=== PATIENT | female | born 1995 | race Caucasian/White ===

== ENCOUNTER 2019-05-02 17:51 | Emergency (ER) | payer BC ==
[2019-05-02 18:02] VITALS: BP 136/90
--- NOTE | 2019-05-02 18:04 | UC ---
Skin Complaint HPI - HPI Summary HPI Summary: H large breast and chronic abscess---is planning to see Dr. Noyola---today had one break on left side of breast about 4;00 location patient reports large amount of bloody and purulent drainage--breast is tender to touch --- patient is not constitutionally ill with this - History of Current Complaint Chief Complaint: UCSkin Time Seen by Provider: 05/02/19 17:57 Stated Complaint: RASH Hx Obtained From: Patient ?: No Onset/Duration: Gradual Onset, Worse Since - today Onset Severity: Moderate Current Severity: Moderate Location: Discrete Character: Pain, Redness Aggravating Factor(s): Touch Alleviating Factor(s): Nothing Associated Signs & Symptoms: Positive: Drainage, Tenderness. Negative: Bruising , Red Streaks - Allergy/Home Medications Allergies/Adverse Reactions: Allergies Allergy/AdvReac Type Severity Reaction Status Date / Time diphenhydramine Allergy See Comment Verified 05/02/19 18:03 [From Benadryl] tape Allergy Hives Uncoded 05/02/19 18:03 PMH/Surg Hx/FS Hx/Imm Hx Previously Healthy: No - Family History Known Family History: Positive: None - Social History Occupation: Employed Full-time Lives: With Family Alcohol Use: Rare Substance Use Type: None Smoking Status (MU): Never Smoked Tobacco Review of Systems All Other Systems Reviewed And Are Negative: Yes Constitutional: Positive: Negative Skin: Positive: Other - open and draining abscess left lateral breast Eyes: Positive: Negative ENT: Positive: Negative Respiratory: Positive: Negative Cardiovascular: Positive: Negative Gastrointestinal: Positive: Negative Genitourinary: Positive: Negative Motor: Positive: Negative Neurovascular: Positive: Negative Musculoskeletal: Positive: Negative Neurological: Positive: Negative Psychological: Positive: Negative Is Patient Immunocompromised?: No Physical Exam Triage Information Reviewed: Yes Appearance: Well-Appearing, Well-Nourished, Pain Distress Vital Signs Reviewed: Yes Eye Exam: Normal Eyes: Positive: Conjunctiva Clear ENT Exam: Normal ENT: Positive: Normal ENT inspection, Hearing grossly normal. Negative: Trismus , Muffled voice, Hoarse voice Dental Exam: Normal Neck exam: Normal Neck: Positive: Supple, Nontender, No Lymphadenopathy Respiratory Exam: Normal Respiratory: Positive: Chest non-tender, Lungs clear, Normal breath sounds, No respiratory distress, No accessory muscle use Cardiovascular Exam: Normal Cardiovascular: Positive: RRR, No Murmur, Pulses Normal, Brisk Capillary Refill Musculoskeletal Exam: Normal Musculoskeletal: Positive: Strength Intact, ROM Intact, No Edema Neurological Exam: Normal Neurological: Positive: Alert, Muscle Tone Normal Psychological Exam: Normal Skin: Positive: Other - 1x2 cm draining open abscess Course/Dx - Course Course Of Treatment: wound culture, bactrim, pain control, to ED should pain or symptoms worsen in anyway---follow with surgeon on Saturday - Diagnoses Provider Diagnosis: Abscess of left breast Discharge - Sign-Out/Discharge Documenting (check all that apply): Patient Departure All imaging exams completed and their final reports reviewed: No Studies - Discharge Plan Condition: Stable Disposition: HOME Prescriptions: Sulfamethox/Trimethoprim DS* [Bactrim DS 800/160 TAB*] 1 tab PO BID #17 tab Patient Education Materials: Abscess (ED), Warm Compress or Soak (ED) Referrals: Pinky Orellana MD [Medical Doctor] - 05/04/19 Additional Instructions: To ED if symptoms worsen in any way--worsening pain, redness spreading fevers, chills, body aches - Billing Disposition and Condition Condition: STABLE Disposition: Home
[2019-05-02] MEDS ORDERED: Sulfamethox/Trimethoprim DS 800/160* TAB PO ONE ×2 (18:24→18:25)
[2019-05-02] MEDS ORDERED: HYDROcodone/ACETAMIN 5-325 MG* 1 TAB PO ONE (18:26)
--- NOTE | 2019-05-04 16:18 | UC ---
- Progress Note Progress Note: pt on bactrim 3+ Staph A pending sensitivity no change [facility] [place] 05/04/19 Course/Dx - Diagnoses Provider Diagnoses: Abscess of left breast Discharge - Sign-Out/Discharge Documenting (check all that apply): Post-Discharge Follow Up All imaging exams completed and their final reports reviewed: No Studies - Discharge Plan Condition: Stable Disposition: HOME Patient Education Materials: Abscess (ED), Warm Compress or Soak (ED) Referrals: Pinky Orellana MD [Medical Doctor] - 05/04/19 Additional Instructions: To ED if symptoms worsen in any way--worsening pain, redness spreading fevers, chills, body aches - Billing Disposition and Condition Condition: STABLE Disposition: Home
--- NOTE | 2019-05-05 17:23 | UC ---
- Progress Note Progress Note: 05/05/2019 Wound culture: positive for S.Aureus. Pt Rx Bactrim final reports shows sensitivity to Bactrim No change Amairani ARIZMENDI Course/Dx - Diagnoses Provider Diagnoses: Abscess of left breast Discharge - Sign-Out/Discharge Documenting (check all that apply): Post-Discharge Follow Up All imaging exams completed and their final reports reviewed: No Studies - Discharge Plan Condition: Stable Disposition: HOME Patient Education Materials: Abscess (ED), Warm Compress or Soak (ED) Referrals: Pinky Orellana MD [Medical Doctor] - 05/04/19 Additional Instructions: To ED if symptoms worsen in any way--worsening pain, redness spreading fevers, chills, body aches - Billing Disposition and Condition Condition: STABLE Disposition: Home - Attestation Statements Provider Attestation: I was available for consult. This patient was seen by the MARTHA. The patient was not presented to, seen by, or examined by me. -Taco
== END 2019-05-02 18:56 | disposition home or self-care (01) ==
LOC: UCEAST 17:51
DX: N61.1 Abscess of the breast and nipple (principal)
CPT/HCPCS: 87070; 87077; 87186; 87205; 87640; 87641; 99213; A9270-GY; G0463

== ENCOUNTER 2019-05-04 08:08 | Emergency (ER) | payer BC ==
[2019-05-04] MEDS ORDERED: Ondansetron INJ* 2 MG/ML VIAL IV ONE (08:27)
[2019-05-04] MEDS ORDERED: Morphine 4 MG/ML VIAL (1 ml) 4 MG/ML VIAL IV ONE (08:27)
[2019-05-04] MEDS ORDERED: HYDROcodone/ACETAMIN 5-325 MG* 1 TAB PO ONE (08:46)
[2019-05-04] MEDS ORDERED: Clindamycin 600 MG/D5W BAG(*) 600 MG/50 ML BAG IV ONE (08:56)
--- NOTE | 2019-05-04 09:06 | ED ---
Skin Complaint - HPI Summary HPI Summary: Patient is a 23-year-old female with a history of hidradenitis suppurativa presenting to the ED with left breast abscess. She states she has not had an abscess and approximately 3 years and usually they will drain spontaneously. She states this has been draining spontaneously, however is with a large ulceration now and continues to provide purulent drainage. She sees with erythema and warmth have decreased (patient shows pictures), she continues to endorse pain, this pain is worse then it has been over the past several days. She states this is the worst abscess she has had since the onset diagnosis of her hidradenitis. Denies any fevers, sweats, chills. Patient states she has been feeling otherwise well. She was also given a 2 day prescription for hydrocodone and use this last evening with good effect. She has been trying to get into see Dr. Chavez, plastic surgery. - History of Current Complaint Chief Complaint: EDRashSkinAbscess Time Seen by Provider: 05/04/19 08:16 Stated Complaint: ABCESS Hx Obtained From: Patient Hx Last Menstrual Period: iud Onset/Duration: Started Days Ago Skin Exposure Onset/Duration: Days Ago Timing: Constant Onset Severity: Moderate Current Severity: Moderate Pain Intensity: 8 Pain Scale Used: 0-10 Numeric Skin Location: Other: - left breast abscess Aggravating Symptom(s): Nothing Alleviating Symptom(s): Nothing Associated Signs & Symptoms: Negative - Allergy/Home Medications Allergies/Adverse Reactions: Allergies Allergy/AdvReac Type Severity Reaction Status Date / Time diphenhydramine Allergy See Comment Verified 05/04/19 08:14 [From Benadryl] tape Allergy Hives Uncoded 05/04/19 08:14 Home Medications: Home Medications Sulfamethox/Trimethoprim DS* [Bactrim DS 800/160 TAB*] 1 tab PO BID 05/04/19 [ History Confirmed 05/04/19] PMH/Surg Hx/FS Hx/Imm Hx Previously Healthy: Yes - Surgical History Surgery Procedure, Year, and Place: septoplasty, turbinate reduction - Immunization History Hx Pertussis Vaccination: No Immunizations Up to Date: Yes Infectious Disease History: No Infectious Disease History: Denies: Traveled Outside the [place] in Last 30 Days - Family History Known Family History: Positive: None - Social History Occupation: Employed Full-time Lives: With Family Alcohol Use: Rare Hx Substance Use: No Substance Use Type: Reports: None Hx Tobacco Use: No Smoking Status (MU): Never Smoked Tobacco Review of Systems Constitutional: Negative Negative: Fever, Chills, Fatigue, Skin Diaphoresis Negative: Palpitations, Chest Pain Negative: Shortness Of Breath, Cough Genitourinary: Negative Positive: see HPI, frequency Negative: Arthralgia, Myalgia Positive: Other - 3cm diameter ulceration Neurological: Negative All Other Systems Reviewed And Are Negative: Yes Physical Exam Triage Information Reviewed: Yes Vital Signs On Initial Exam: Initial Vitals Temp Pulse Resp BP Pulse Ox 97.9 F 94 18 127/83 98 05/04/19 08:11 05/04/19 08:11 05/04/19 08:11 05/04/19 08:11 05/04/19 08:11 Vital Signs Reviewed: Yes Appearance: Positive: Well-Appearing, Well-Nourished Skin: Positive: Skin Color Reflects Adequate Perfusion, Tender, Weeping Skin/ Lesions - ulceration to the L breast - 3cm in diameter Head/Face: Positive: Normal Head/Face Inspection Eyes: Positive: EOMI, BECKI, Conjunctiva Clear Neck: Positive: Supple, No Lymphadenopathy Respiratory/Lung Sounds: Positive: Clear to Auscultation, Breath Sounds Present Cardiovascular: Positive: RRR, Pulses are Symmetrical in both Upper and Lower Extremities Musculoskeletal: Positive: Normal, Strength/ROM Intact Neurological: Positive: Speech Normal Psychiatric: Positive: Affect/Mood Appropriate - patient is tearful d/t pain AVPU Assessment: Alert Diagnostics - Vital Signs Vital Signs Temp Pulse Resp BP Pulse Ox 05/04/19 08:53 16 05/04/19 08:11 97.9 F 94 18 127/83 98 - Laboratory Lab Statement: Any lab studies that have been ordered have been reviewed, and results considered in the medical decision making process. Course/Dx - Course Course Of Treatment: During this course of treatment, the patient is evaluated for a left sided breast abscess. On physical examination, there is an ulceration which is approximately 4 cm in diameter with small amount of purulent drainage around the edges and shows tissue with evidence of mucous membraine and disintegration of tissue. loss of epidermal layer and shows a small area of subcutaneous fat. No evidence of lack of blood flow surrounding. Applied xeroform and tegaderm. Givne 600mg clindamycin and morphine in the ED. patient is given a note for work 1 week. She will continue to take Bactrim twice daily. She will f/u with wound clinic. - Differential Diagnoses - Skin Complaint Differential Diagnoses: Other - hidradenitis suppurativa, ulceration - Diagnoses Provider Diagnoses: Abscess, Ulceration Discharge - Sign-Out/Discharge Documenting (check all that apply): Patient Departure Patient Received Moderate/Deep Sedation with Procedure: No - Discharge Plan Condition: Stable Disposition: HOME Prescriptions: Hydrocodone/Acetamin 10/325(NF [[place] 10/325 (NF)] 1 tab PO Q6H #16 tab MDD 4 Patient Education Materials: Acute Wound Care (ED) Forms: *Work Release Referrals: Slim Huffman MD [Medical Doctor] - No Primary Care Phys,NOPCP [Primary Care Provider] - Ras Eid MD [Medical Doctor] - Additional Instructions: Please follow up with wound care Please try to continue to follow up with Dr. Chavez I have also given you a referral for surgery for worsening hidrenitis symptoms Replace gauze bandages once daily until wound has healed over Continue to place antibiotic ointment to the area if you no longer are using the xeroform gauze - Billing Disposition and Condition Condition: STABLE Disposition: Home
--- OUTSIDE RECORDS SUMMARY | 2019-05-04 09:13 | XMS REPORT | Continuity of Care Document ---
:1995 External Reference #:[id number] Author Name Mable Trinhitlyn Care Team Providers Name Role Phone Out Of State Primary Care Physician Unavailable Payers Date Identification Numbers Payment Provider Subscriber Effective: 2005 Policy Number: [id number] [facility] Group Number: [id number] [address] [id number] PayID: [id number] [place] [address] Problems Active Problems Provider Date Obstructive sleep apnea syndrome Shawanda Sequeira DNP, RN, STENOGRAPHER SECRETARY-BC Onset: 06/2019 Hypersomnia Shawanda Sequeira DNP, RN, STENOGRAPHER SECRETARY-BC Onset: 12/26/2018 Body mass index 40+ - severely Shawanda Sequeira DNP, RN, STENOGRAPHER SECRETARY-BC Onset: 2018 obese Family History Date Family Member(s) Observation Comments General Sleep Apnea General Diabetes Type II General Hypertension Father Diabetes Father Hypertension Mother Alive And Well Siblings 2 Paternal Grandfather Alzheimer's Disease Paternal Grandmother Lung Cancer Maternal Grandfather Alive And Well Maternal Grandmother Diabetes Maternal Grandmother Breast Cancer Social History Type Date Description Comments Sex Unknown Education Higest level completed, Bachelor's Degree Marital Status Significant Other Lives With Boyfriend 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 Tobacco Use Start: Unknown Never Smoked Cigarettes Smoking Status Reviewed: 04/27/19 Never Smoked Cigarettes ETOH Use Occasionally consumes alcohol Tobacco Use Start: Unknown Patient has never smoked Recreational Drug Use Sporadically uses Marijuana Exercise Type/Frequency Exercises regularly Exercise Type/Frequency Lifts weights 4 times a week Currently Active Patient is currently sexually active Contraceptive Methods Current methods include placed 07/2018 copper T IUD [place] Allergies, Adverse Reactions, Alerts Description No Known Drug Allergies Medications Active Medications SIG Qnty Indications Ordering Provider Date One-A-Day Womens Unknown Zinc 1 tab by mouth Unknown 100mg every day D3 1 tab by mouth Unknown every day Nasacort Allergy use 1 spray in Unknown 24HR affected 55mcg/Act nostril(s) once Aerosol daily at bedtime Azelastine HCL 2 squirts in each 30units Unknown (Nasal) nostril 2x daily 0.1% Solution Vitamin B Complex 1 tab by mouth Unknown every day B-12 1 tab by mouth Unknown every day History Medications Antihistimine once a day in each Chela White MD 10/27/2018 - nostril 11/12/2018 [place]-3 1 by mouth every Unknown - 1200mg Capsules day 12/25/2018 Vital Signs Date Vital Result Comment 04/27/2019 8:24am Height 72 inches 6'0" Weight 313.00 lb Heart Rate 80 /min BP Systolic Sitting 132 mmHg BP Diastolic Sitting 86 mmHg Respiratory Rate 18 /min O2 % BldC Oximetry 98 % BMI (Body Mass Index) 42.4 kg/m2 12/26/2018 8:05am Height 72 inches 6'0" Weight 311.00 lb Heart Rate 86 /min BP Systolic Sitting 140 mmHg Rue large cuff BP Diastolic Sitting 80 mmHg Rue large cuff Respiratory Rate 12 /min O2 % BldC Oximetry 98 % BMI (Body Mass Index) 42.2 kg/m2 12/18/2018 3:23pm Height 72 inches 6'0" Weight 310.00 lb Heart Rate 86 /min BP Systolic 147 mmHg BP Diastolic 73 mmHg O2 % BldC Oximetry 97 % BMI (Body Mass Index) 42.0 kg/m2 11/12/2018 8:12am Height 72 inches 6'0" Weight 310.00 lb Heart Rate 72 /min Respiratory Rate 12 /min O2 % BldC Oximetry 98 % BMI (Body Mass Index) 42.0 kg/m2 11/10/2018 8:32am Height 72 inches 6'0" Weight 314.12 lb with clothes and shoes Heart Rate 73 /min BP Systolic Sitting 148 mmHg BP Diastolic Sitting 72 mmHg Body Temperature 98.3 F O2 % BldC Oximetry 98 % BMI (Body Mass Index) 42.6 kg/m2 10/27/2018 7:30am Height 72 inches 6'0" Weight 309.00 lb Heart Rate 80 /min BP Systolic Sitting 118 mmHg Rue large cuff BP Diastolic Sitting 76 mmHg Rue large cuff Respiratory Rate 12 /min O2 % BldC Oximetry 98 % BMI (Body Mass Index) 41.9 kg/m2 Neck Circumference in inches 15.5 Results Test Date Facility Test Result H/L Range Note CBC Auto Diff 12/05/2018 [facility] White Blood 3.5 10^3/uL N 3.5-10.[address] [place] [address] [phone] Red Blood Count 4.60 10^6/uL N 4.00-5.40 Hemoglobin 13.2 g/dL N 12.0-16.0 Hematocrit 40 % N 35-47 Mean Corpuscular Volume 87 fL N 80-97 Mean Corpuscular Hemoglobin 29 pg N 27-31 Mean Corpuscular HGB Conc 33 g/dL N 31-36 Red Cell Distribution Width 13 % N 10.5-15 Platelet Count 312 10^3/uL N 150-450 Mean Platelet Volume 7.1 fL Low 7.4-10.4 Abs Neutrophils 1.4 10^3/uL Low 1.5-7.7 Abs Lymphocytes 1.5 10^3/uL N 1.0-4.8 Abs Monocytes 0.4 10^3/uL N 0-0.8 Abs Eosinophils 0.1 10^3/uL N 0-0.6 Abs Basophils 0 10^3/uL N 0-0.2 Abs Nucleated RBC 0 10^3/uL Granulocyte % 39.9 % Lymphocyte % 44.4 % Monocyte % 12.1 % Eosinophil % 3.0 % Basophil % 0.6 % Nucleated Red Blood Cells % 0 Laboratory test 12/05/2018 [facility] TSH (Thyroid 2.06 mcIU/mL N 0.34-5.[address] Stim Horm) [place] [address] [phone] Prolactin 9.2 ng/mL N 1.0-25.0 HCG < 0.60 mIU/mL 1 1 <5.0 Negative 5.0 - 25.0 Indeterminate (Repeat testing recommended after 72 hours) >25.0 Positive Perimenopausal women can display HCG levels of up to 20 mIU/mL Procedures Date Code Description Status 12/12/2018 48342 Polysomnography Sleep Staging 4+ Parameters Completed 10/29/2018 91737 Sleep Study Unattended,HRT Rate,Oxygen Sat,Resp Completed Effort/Airflow Encounters Type Date Location Provider Dx Diagnosis Office Visit 12/26/2018 [facility] Shawanda Sequeira, G47.33 Obstructive sleep 8:30a [facility] RONNIE-KIRK apnea (adult) [facility] (pediatric) G47.14 Hypersomnia due to medical condition E66.01 Morbid (severe) obesity due to excess calories Z68.41 Body mass index (BMI) 40.0-44.9, adult Office Visit 12/18/2018 3:30p [facility] Gal Duke, N92.6 [facility] menstruation, unspecified [facility] menstruation, at [place] unspecified Z97.5 Presence of (intrauterine) contraceptive device Office Visit 10/27/2018 7:30a [facility] Chela White, R06.83 [facility] R53.83 Other fatigue E66.09 Other obesity due to excess calories Z68.41 Body mass index (BMI) 40.0-44.9, adult Plan of Treatment Future Appointment(s):07/28/2019 8:30 am - Shawanda Sequeira DNP, RN, RONNIE-BC at [facility]04/27/2019 - Shawanda Sequeira DNP RN, RONNIE- BCG47.33 Obstructive sleep apnea (adult) (pediatric)Comments:12/12/18 AHI 13.1/ hour, worse supine 40/hour, 85% nadirOn CPAP auto 5-15 cm AHI 1.9/hourFollow up:3 monthsRecommendations:Continue PAP device, Benefitting and compliant with treatment. Cleaning Wipe off mask daily (baby wipe-no scent, or warm water) Clean mask, tubing, filter, and water chamber weekly in mild no scent dish soap and water. Hang to dry. If you have any sleepiness while driving you MUST avoid operating a vehicle or machinery. If you have difficulty with your equipment, or need to replace your mask or hoses, please contact your homecare agency. A weight change of 20 pounds or more may have an effect onyour equipment ; if you are experiencing problems please call for an appointment. If you have any further questions, please call the [facility] at .L27.14 Hypersomnia due to medical [id number] Morbid (severe) obesity due to excess caloriesRecommendations:Continue with weight loss [id number] Body mass index (BMI) 40.0-44.9, adultRecommendations:See assessment #3
--- NOTE | 2019-05-04 09:38 | ED ---
Progress - Progress Note Progress Note: VIKAS Hicks, asked me to see this patient. Abscess seems to have resolved. Patient has a superficial ulceration on the left side of the breast approximately at 3 o'clock position. No induration or fluctuance. I gave recommendation of Xeroform gauze application and wound care follow up. Course/Dx - Diagnoses Provider Diagnoses: Abscess, Ulceration Discharge - Sign-Out/Discharge Documenting (check all that apply): Patient Departure - Discharge home Patient Received Moderate/Deep Sedation with Procedure: No - Discharge Plan Condition: Stable Disposition: HOME Prescriptions: Hydrocodone/Acetamin 10/325(NF [[place] 10/325 (NF)] 1 tab PO Q6H #16 tab MDD 4 Patient Education Materials: Acute Wound Care (ED) Forms: *Work Release Referrals: Slim Huffman MD [Medical Doctor] - No Primary Care Phys,NOPCP [Primary Care Provider] - Ras Eid MD [Medical Doctor] - Additional Instructions: Please follow up with wound care Please try to continue to follow up with Dr. Chavez I have also given you a referral for surgery for worsening hidrenitis symptoms Replace gauze bandages once daily until wound has healed over Continue to place antibiotic ointment to the area if you no longer are using the xeroform gauze - Attestation Statements Document Initiated by Scribe: Yes Documenting Scribe: Jennie Moraes Provider For Whom Scribe is Documenting (Include Credential): Calderon Rubio MD Scribe Attestation: I, Jennie Moraes, scribed for Calderon Rubio MD on 05/04/19 at 1343. Status of Scribe Document: Ready
--- NOTE | 2019-05-04 09:43 | UC ---
- Progress Note Progress Note: Reviewed prelim gm stain / cx results. + S. aureus + (MRSA neg). Cx pending. I note that she just has been re-seen in the ED, with Bactrim rx'd, and f/u given. Course/Dx - Diagnoses Provider Diagnoses: Abscess Discharge - Sign-Out/Discharge Documenting (check all that apply): Post-Discharge Follow Up Patient Received Moderate/Deep Sedation with Procedure: No - Discharge Plan Condition: Stable Disposition: HOME Prescriptions: Hydrocodone/Acetamin 10/325(NF [[place] 10/325 (NF)] 1 tab PO Q6H #16 tab MDD 4 Patient Education Materials: Acute Wound Care (ED) Forms: *Work Release Referrals: Slim Huffman MD [Medical Doctor] - No Primary Care Phys,NOPCP [Primary Care Provider] - Ras Eid MD [Medical Doctor] - Additional Instructions: Please follow up with wound care Please try to continue to follow up with Dr. Chavez I have also given you a referral for surgery for worsening hidrenitis symptoms Replace gauze bandages once daily until wound has healed over Continue to place antibiotic ointment to the area if you no longer are using the xeroform gauze - Billing Disposition and Condition Condition: STABLE Disposition: Home
[2019-05-04] MEDS ORDERED: Clindamycin 600 MG IVPREMIX(* 600 MG/50 ML SDV IV ONE (10:00)
[2019-05-04 10:05] VITALS: BP 112/79
== END 2019-05-04 10:04 | disposition home or self-care (01) ==
LOC: ED 08:08
DX: N61.1 Abscess of the breast and nipple (principal); L98.499 Non-pressure chronic ulcer of skin of other sites with unspecified severity
CPT/HCPCS: 96374; 96375; 99282; J2270; J2405

== ENCOUNTER 2020-02-03 10:14 | Emergency (ER) | payer BC ==
--- NOTE | 2020-02-03 10:36 | UC ---
FLU HPI - HPI Summary HPI Summary: 24 yo female presents with URI symptoms. She tells me that last night she developed fatigue, nausea, sore throat, runny nose, and dry cough. Symptoms have persisted into this morning. She has not taken anything OTC for her symptoms. She has not had any recent travel or positive COVID contacts. Denies any PMHx. She does not smoke. Denies fever, SOB, chest pain, abdominal pain, vomiting. She did get a flu shot this year - History of Current Complaint Stated Complaint: SORE THROAT COUGH FEVER CHILLS Time Seen by Provider: 02/03/20 10:35 Hx Obtained From: Patient Hx Last Menstrual Period: iud Onset/Duration: Sudden Onset Severity Currently: Moderate Severity Initially: Moderate Pain Intensity: 5 Pain Scale Used: 0-10 Numeric - Allergy/Home Medications Allergies/Adverse Reactions: Allergies Allergy/AdvReac Type Severity Reaction Status Date / Time diphenhydramine Allergy See Comment Verified 02/03/20 10:52 [From Benadryl] tape Allergy Hives Uncoded 02/03/20 10:52 Home Medications: Home Medications Albuterol HFA INHALER* [Ventolin HFA Inhaler*] 1 puff INH Q6H PRN #1 mdi [Rx] PMH/Surg Hx/FS Hx/Imm Hx - Additional Past Medical History Additional PMH: None - Surgical History Surgical History: Yes Surgery Procedure, Year, and Place: septoplasty, turbinate reduction - Family History Known Family History: Positive: None - Social History Lives: With Family Alcohol Use: Rare Substance Use Type: None Smoking Status (MU): Never Smoked Tobacco Review of Systems All Other Systems Reviewed And Are Negative: No Constitutional: Positive: Chills, Fatigue, Other - Body aches Skin: Positive: Negative Eyes: Positive: Negative ENT: Positive: Sore Throat, Nasal Discharge Respiratory: Positive: Cough Cardiovascular: Positive: Negative Gastrointestinal: Positive: Nausea Genitourinary: Positive: Negative Neurological/Mental Status: Positive: Negative Psychological: Positive: Negative Physical Exam - Summary Physical Exam Summary: GENERAL: NAD. WDWN. No pain distress. SKIN: No rashes, sores, lesions, or open wounds. HEENT: Head: AT/NC Eyes: Conjunctiva clear without inflammation or discharge. Ears: Hearing grossly normal. TMs intact, no bulging, erythema, or edema. Nose: Nasal mucosa pink and moist. NTTP maxillary and frontal sinus. Throat: Posterior oropharynx without exudates, erythema, or tonsillar enlargement. Uvula midline. NECK: Supple. Nontender. No lymphadenopathy. CHEST: Mild wheezing throughout. No r/r. No accessory muscle use. Breathing comfortably and in no distress. CV: RRR. Pulses intact. Cap refill <2seconds NEURO: Alert. PSYCH: Age appropriate behavior. Triage Information Reviewed: Yes Vital Signs: Vital Signs: Temp Pulse Resp BP Pulse Ox 98 F 94 18 154/84 98 02/03/20 10:53 02/03/20 10:53 02/03/20 10:53 02/03/20 10:53 02/03/20 10:53 Laboratory Tests 02/03/20 10:51 Influenza A (Rapid) Negative Influenza B (Rapid) Negative Vital Signs Reviewed: Yes Diagnostics - Radiology CXR Radiology Interpretation Completed By: Radiologist Summary of Radiographic Findings: IMPRESSION: NO ACTIVE CARDIOPULMONARY DISEASE. Flu Course/Dx - Course Course Of Treatment: CXR negative. POC flu negative. She does not meet criteria for COVID testing (cough only with other dx being more likely) and has no comorbidities. Suspect bronchitis - rx for albuterol inhaler. She was given a duoneb treatment in the clinic with great relief and improved lung sounds. [place] better and had less coughing. - Differential Dx/Diagnosis Provider Diagnosis: Bronchitis Discharge ED - Sign-Out/Discharge Documenting (check all that apply): Patient Departure All imaging exams completed and their final reports reviewed: No Studies - Discharge Plan Condition: Stable Disposition: HOME Prescriptions: Albuterol HFA INHALER* [Ventolin HFA Inhaler*] 1 puff INH Q6H PRN #1 mdi PRN Reason: Cough Patient Education Materials: Acute Bronchitis (ED) Referrals: No Primary Care Phys,NOPCP [Primary Care Provider] - Additional Instructions: Your symptoms are likely from a viral infection. Viral infections do not respond to antibiotics and are limited to the treatment of symptoms. Viral infections typically run their course in 7-10 days. Drink plenty of fluids, especially if you are running any fever. Use salt water gargles several times a day. Take over the counter acetaminophen (Tylenol) or ibuprofen (Advil, Motrin) according to directions as needed for pain or fever. You may also use Chloraseptic spray or Cepacol lonzenges according to directions which contain a numbing medication and can provide some temporary relief from a sore throat. Return here or follow up with your primary care provider in 7 days if symptoms persist. - Billing Disposition and Condition Condition: STABLE Disposition: Home - Attestation Statements Provider Attestation: This patient was not seen by me I was available for consult Chart reviewed WILLIAMS
--- OUTSIDE RECORDS SUMMARY | 2020-02-03 10:43 | XMS REPORT | Continuity of Care Document ---
:1995 External Reference #:[id number] Author Name VIKAS Shi Address [address] [place] [address] Care Team Providers Name Role Phone Saqib Simmons MD - Family Care Team Information [employer] Medicine Problems Description No Information Available Social History Type Date Description Comments Sex Unknown Tobacco Use Start: Unknown Patient has never smoked Smoking Status Reviewed: 08/10/19 Patient has never smoked Allergies, Adverse Reactions, Alerts Active Allergies Reaction Severity Comments Date Benadryl Hives, super hyper 08/10/2019 Medications Active Medications SIG Qnty Indications Ordering Provider Date Diflucan take 1 pill 12tabs B35.4 Geovnai Bone, 01/12/2020 150mg Tablets every 3 days M.D. until you see me next week Multivitamin Adult 1 by mouth Unknown every day Tablets Vitamin D-3 2 by mouth Unknown 1000Unit every day Capsules Zinc Unknown 30mg Capsules Super B Complex Maxi Unknown Tablets Vitamin B12 1 by mouth Unknown 3000mcg every day Tablets Sub Immunizations CPT Code Status Date Vaccine Lot # [id number] Given 08/10/2019 Influenza Vac, Quadrivalent, Slit Virus, Im [id number] Vital Signs Date Vital Result Comment 01/12/2020 4:45pm BP Systolic 150 mmHg BP Diastolic 90 mmHg Heart Rate 64 /min Body Temperature 98.1 F Respiratory Rate 20 /min Height 72 inches 6'0" Weight 318.25 lb shoes on BMI (Body Mass Index) 43.2 kg/m2 08/10/2019 8:42am BP Systolic 110 mmHg BP Diastolic 72 mmHg Heart Rate 90 /min Body Temperature 98.1 F Height 72 inches 6'0" Weight 239.00 lb BMI (Body Mass Index) 32.4 kg/m2 Results Test Acquired Date Facility Test Result H/L Range Note Comprehensive 08/10/2019 Eduardo Gaytan([facility]) Sodium 138 mEq/L 134-149 Metabolic Prof Potassium 4.1 mEq/L 3.6-5.5 Chloride 102 mEq/L 94-112 Carbon Dioxide 26 mEq/L 21-32 Glucose 109 mg/dL High 70-105 BUN 12 mg/dL 6-26 Creatinine 0.7 mg/dL 0.6-1.4 BUN/Creat Ratio 17.1 CALC 8.0-36.0 Calcium 9.6 mg/dL 8.6-10.2 Total Protein 6.9 g/dL 6.4-8.3 Albumin 4.6 g/dL 3.8-5.5 Globulin 2.3 g/dL 2.0-4.8 A/G Ratio 2.0 CALC 0.6-2.3 Alk. Phosphatase 53 U/L 30-110 Alt (SGPT) 26 U/L 7-35 Ast (Sgot) 21 U/L 5-34 Total Bilirubin 0.6 mg/dL 0.2-1.3 GFR Non- >60 ml/min/1.73m^ >=60 GFR >60 ml/min/1.73m^ >=60 Lipid Profile 08/10/2019 Eduardo Gaytan([facility]) Cholesterol 191 mg/dL 120- 200 Triglycerides 152 mg/dL 30-200 HDL Cholesterol 37 mg/dL 30-85 LDL (Calculated) 124 CALC 0-129 VLDL Cholesterol 30 mg/dL 0-50 HDL Risk Factor 5.2 CALC High 0.0-4.4 Laboratory test 08/10/2019 Eduardo Gaytan([facility]) TSH 1.97 mIU/L 0.50-6.00 finding CBC Electronic Fma 08/10/2019 Eduardo Gaytan([facility]) WBC 3.3 x10^3/UL Low 4.0-10.0 1 RBC 4.37 x10^6/UL 3.93-6.00 HGB 12.6 g/dL 12.0-17.0 HCT 38 % 35-50 MCV 87.6 fL 80.0-95.0 MCH 28.8 pg 25.6-32.2 MCHC 32.9 g/dL 32.2-36.0 RDW-CV 13.0 % 11.6-14.4 PLT 239 x10^3/UL 163-400 MPV 8.9 fL Low 9.4-12.4 Jose M# 1.36 x10^3/UL Low 1.56-6.13 Lymph# 1.38 x10^3/UL 1.18-3.74 [place]# 0.42 x10^3/UL 0.24-0.82 Eos # 0.2 x10^3/UL 0.0-0.5 Baso # 0.03 x10^3/UL 0.01-0.08 Jose M% 40.7 % 34.0-70.0 Lymph % 41.3 % 20.0-52.0 [place]% 12.6 % High 5.0-12.0 Eos% 4.5 % 0.7-7.0 Baso% 0.9 % 0.1-1.2 1 RESULTS VERIFIED BY REPEAT ANALYSIS Procedures Description No Information Available Medical Devices Description No Information Available Encounters Type Date Location Provider Dx Diagnosis Office Visit 08/10/2019 [facility] Saqib Molina Z00.00 Encntr for general 9:00a MD [place] adult medical exam w/o abnormal findings Z23 Encounter for immunization E66.9 Obesity, unspecified Assessments Date Code Description Provider 01/12/2020 B35.4 Tinea corporis VIKAS Shi 08/10/2019 Z00.00 Encounter for general adult medical Saqib Simmons MD examination without abnormal findings 08/10/2019 Z23 Encounter for immunization Saqib Simmons MD 08/10/2019 E66.9 Obesity, unspecified Saqib Simmons MD Plan of Treatment Future Appointment(s):01/19/2020 4:00 pm - VIKAS Shi at [facility] [id number]/12/2020 - Fozia Valerio, PAB35.4 Tinea corporisNew Medication: Diflucan 150 mg - take 1 pill every 3 days until you see me next weekComments: Could be fungal or pityriasis rosea (which is viral) Start Diflucan 1 tablet every 3 days for the next week See me next week to check inAllComments: PCMHMedication Management Patient Understands medications he's taking? Yes Are there Barriers to Adherence? No Has the patient been asked about herbal supplements and therapies, and OTC meds? Yes Care Plan1. Patient has been queried about patient's goals/preferences and functional/ lifestyle goals at relevant visits. Yes If relevant, describe: N/A2. Treatment goals as explained to the patient: above3. Are there barriers to meeting treatment goals? No If Yes, please describe:4. Self-Management goals as described to the patient: Yes As always, we strongly encourage a healthy diet and making physical activity a part of your every day life. If you have questions about how or where to start, please contact the office. Functional Status Description No Information Available Mental Status Description No Information Available Referrals Description No Information Available
--- OUTSIDE RECORDS SUMMARY | 2020-02-03 10:43 | XMS REPORT | Continuity of Care Document ---
:1995 External Reference #:[id number] Author Name VIKAS Shi Address [address] [place] [address] Care Team Providers Name Role Phone Saqib Simmons MD - Family Care Team Information [employer] Medicine Problems Description No Information Available Social History Type Date Description Comments Sex Unknown Tobacco Use Start: Unknown Patient has never smoked Smoking Status Reviewed: 08/10/19 Patient has never smoked Allergies, Adverse Reactions, Alerts Active Allergies Reaction Severity Comments Date Benadryl Hives, super hyper 08/10/2019 Medications Active Medications SIG Qnty Indications Ordering Provider Date Ketoconazole apply to affected 60gm B35.4 Geovani Bone, 01/19/2020 2% Cream area 1 time a day M.D. until resolution Multivitamin Adult 1 by mouth every Unknown day Tablets Vitamin D-3 2 by mouth every Unknown 1000Unit day Capsules Zinc Unknown 30mg Capsules Super B Complex Maxi Unknown Tablets Vitamin B12 1 by mouth every Unknown 3000mcg day Tablets Sub History Medications Diflucan take 1 pill 12tabs B35.4 Geovani Bone, 01/12/2020 - 150mg every 3 days M.D. 01/19/2020 Tablets until you see me next week Immunizations CPT Code Status Date Vaccine Lot # [id number] Given 08/10/2019 Influenza Vac, Quadrivalent, Slit Virus, Im [id number] Vital Signs Date Vital Result Comment 01/19/2020 4:16pm BP Systolic 120 mmHg BP Diastolic 88 mmHg Heart Rate 86 /min Body Temperature 97.9 F Height 72 inches 6'0" 01/12/2020 4:45pm BP Systolic 150 mmHg BP Diastolic 90 mmHg Heart Rate 64 /min Body Temperature 98.1 F Respiratory Rate 20 /min Height 72 inches 6'0" Weight 318.25 lb shoes on BMI (Body Mass Index) 43.2 kg/m2 Results Test Acquired Date Facility Test Result H/L Range Note Comprehensive 08/10/2019 Eduardo Gaytan([facility]) Sodium 138 mEq/L 134-149 Metabolic Prof Potassium [...] >60 ml/min/1.73m^ >=60 Lipid Profile 08/10/2019 Eduardo Gaytan([facility]) Cholesterol 191 mg/dL 120- 200 Triglycerides 152 mg/dL 30-200 HDL Cholesterol 37 mg/dL 30-85 LDL (Calculated) 124 CALC 0-129 VLDL Cholesterol 30 mg/dL 0-50 HDL Risk Factor 5.2 CALC High 0.0-4.4 Laboratory test 08/10/2019 Eduardo Gaytan([facility]) TSH 1.97 mIU/L 0.50-6.00 finding CBC Electronic a 08/10/2019 Eduardo Gaytan([facility]) WBC 3.3 x10^3/UL Low 4.0-10.0 1 RBC 4.37 x10^6/UL 3.93-6.00 HGB 12.6 g/dL 12.0-17.0 HCT 38 % 35-50 MCV 87.6 fL 80.0-95.0 MCH 28.8 pg 25.6-32.2 MCHC 32.9 g/dL 32.2-36.0 RDW-CV 13.0 % 11.6-14.4 PLT 239 x10^3/UL 163-400 MPV 8.9 fL Low 9.4-12.4 Jose M# 1.36 x10^3/UL Low 1.56-6.13 Lymph# 1.38 x10^3/UL 1.18-3.74 [place]# 0.42 x10^3/UL 0.24-0.82 Eos # 0.2 x10^3/UL 0.0-0.5 Baso # 0.03 x10^3/UL 0.01-0.08 Jose M% 40.7 % 34.0-70.0 Lymph % 41.3 % 20.0-52.0 [place]% 12.6 % High 5.0-12.0 Eos% 4.5 % 0.7-7.0 Baso% 0.9 % 0.1-1.2 1 RESULTS VERIFIED BY REPEAT ANALYSIS Procedures Description No Information Available Medical Devices Description No Information Available Encounters Type Date Location Provider Dx Diagnosis Office Visit 01/12/2020 [facility] Fozia Valerio, B35.4 Tinea corporis 4:15p PA Office Visit 08/10/2019 [facility] Office Saqib Molina Z00.00 Encntr for general 9:00a MD [place] adult medical exam w/o abnormal findings Z23 Encounter for immunization E66.9 Obesity, unspecified Assessments Date Code Description Provider 01/19/2020 B35.4 Tinea corporis VIKAS Shi 01/12/2020 B35.4 Tinea corporis VIKAS Shi 08/10/2019 Z00.00 Encounter for general adult medical Saqib Simmons MD examination without abnormal findings 08/10/2019 Z23 Encounter for immunization Saqib Simmons MD 08/10/2019 E66.9 Obesity, unspecified Saqib Simmons MD Plan of Treatment 01/19/2020 - Fozia Valerio, PAB35.4 Tinea corporisNew Medication:Ketoconazole 2 % - apply to affected area 1 time a day until resolutionComments:Start ketoconazole cream to the lesions once a day for the next few weeks See Dr. Proctor's office for further careAllComments:PCMHMedication Management Patient Understands medications he's taking? Yes Are there Barriers to Adherence? No Has the patient been asked about herbal supplements and therapies, and OTC meds? Yes Care Plan1. Patient has been queried about patient's goals/preferences and functional/lifestyle goals at relevant visits. Yes If relevant, describe: N/A2. Treatment goals as explained to the patient: above3. Are there barriers to meeting treatment goals? No If Yes , please describe:4. Self-Management goals as described to [...]
[2020-02-03] MEDS ORDERED: Albuterol/Ipratropium NEB.SOL* Albuterol 2.5 MG/Ipratropium 0.5 MG 3 ML INH ONE (10:54)
[2020-02-03 10:56] VITALS: BP 154/84
[2020-02-03 11:03] LABS: Influenza A Molecular Negative (Negative); Influenza B Molecular Negative (Negative)
== END 2020-02-03 11:30 | disposition home or self-care (01) ==
LOC: UCEAST 10:14
DX: J40 Bronchitis, not specified as acute or chronic (principal); R11.0 Nausea; Z88.8 Allergy status to other drugs, medicaments and biological substances; Z91.09 Other allergy status, other than to drugs and biological substances
CPT/HCPCS: 71046; 87651; 99212; A9270-GY; G0463